=== PATIENT | male | born 1990 | race Caucasian/White ===

== ENCOUNTER 2022-09-08 08:49 | Emergency (ER) | payer SELFPAY ==
[2022-09-08 11:00] LABS: CORONAVIRUS COVID-19 NAA NEGATIVE (NEGATIVE)
== END 2022-09-08 11:15 | disposition home or self-care (01) ==
LOC: JD.ED 08:49
DX: I10 Essential (primary) hypertension (principal); Z79.899 Other long term (current) drug therapy; Z20.822 Contact with and (suspected) exposure to COVID-19
CPT/HCPCS: 0241U; 36415; 80053; 84484; 85025; 93005; 99283